=== PATIENT | male | born 1990 | race Caucasian/White ===

== ENCOUNTER 2020-12-01 10:00 | Emergency (ER) | payer SELFPAY ==
[2020-12-01 10:16] VITALS: BP 135/86; PULSE 87; RESP 17; TEMP 36.4; O2SAT 98; BMI 31.6
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
[2020-12-01 10:31] VITALS: BP 135/86; PULSE 84; RESP 12; O2SAT 97
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
[2020-12-01] MEDS: ketorolac 60 mg/2 mL INJ IM (10:42)
[2020-12-01 11:32] VITALS: BP 138/99; PULSE 87; RESP 18; O2SAT 97
== END 2020-12-01 11:33 | disposition home or self-care (01) ==
PROVIDERS: Emergency Provider Family Medicine
DX: S00.81XA Abrasion of other part of head, initial encounter (principal); V89.2XXA Person injured in unspecified motor-vehicle accident, traffic, initial encounter
CPT/HCPCS: 70450; 72125; 96372; 99283; J1885

== ENCOUNTER → 2021-01-21 11:30 | Outpatient (BNVA) | payer SELFPAY | PROVIDERS: Visit Provider Registered Nurse Neonatal Intensive Care | DX: J02.9 Acute pharyngitis, unspecified (principal) | CPT/HCPCS: 87880 ==